=== PATIENT | male | born 1930 | race Caucasian/White ===

== ENCOUNTER 2017-01-14 11:01 | Inpatient (IN) ==
--- NOTE | 2017-01-14 11:26 | Emergency Department Note ---
Disposition Clinical Impression: Paraphimosis Hip fracture, right Qualifiers: Encounter type: initial encounter Fracture type: closed Qualified Code(s): S72.001A - Fracture of unspecified part of neck of right femur, initial encounter for closed fracture Disposition: Admitted As Inpatient Condition: Fair [facility] Provider[facility] - Forms: ED Satisfaction Letter Time of Disposition: 13:53 General Adult HPI - General Chief complaint: ED Fall Stated complaint: hip fx Time Seen by Provider: 01/14/17 11:08 Source: patient, EMS Limitations: no limitations Nursing Notes Reviewed: Yes Vital Signs Reviewed: Yes - History of Present Illness HPI Narrative: 6-year-old male presents the ED from [facility] complaining of right hip pain from a unwitnessed fall out of his wheelchair. Patient has a history of dementia and is a very poor historian. [facility] in his room out of his chair complaining that his whole right side hurt. They took him down to the clinic and had an x-ray and said his right hip was fractured. He was then transferred [facility]. Patient is unable to say if he has pain or when he fell or how he fell. Pain Scale: 2 - Related Data Allergies Allergy/AdvReac Type Severity Reaction Status Date / Time No Known Allergies Allergy Verified 01/14/17 13:00 Constitutional: Denies: fever, chills, weakness, weight change Eyes: Reports: as per HPI Cardiovascular: Denies: chest pain, palpitations, dyspnea on exertion, edema, syncope Respiratory: Denies: cough, dyspnea, wheezes, hemoptysis, stridor Gastrointestinal: Denies: abdominal pain, nausea, vomiting, diarrhea, constipation, hematemesis, melena, hematochezia Genitourinary: Denies: urgency, dysuria, frequency, hematuria Musculoskeletal: Denies: back pain, neck pain, arthralgia, myalgia Integumentary: Denies: rash, abrasion, lesions Neurological: Denies: headache, weakness, numbness, paresthesias, confusion, abnormal gait, vertigo Hematological/Lymphatic: Denies: easy bleeding, easy bruising Past Medical History - Past Medical History Attestation: Yes The following information was validated with the patient. Medical history: Reports: atrial fibrillation, coronary artery disease, dementia , hypertension Psychiatric history: Reports: no psych history - Social History Smoking Status: Unknown if ever smoked Smokeless Tobacco Status: No Alcohol use: Reports: none Drug use: Reports: none Physical Exam - General Limitations: no limitations General appearance: alert, in no apparent distress - Head Head exam: atraumatic, normocephalic, normal inspection - Eye Eye exam: Present: normal appearance, PERRL, EOMI - Chest Chest inspection: Present: normal inspection, symmetric chest wall rise - Respiratory Respiratory exam: Present: normal lung sounds bilaterally - Cardiovascular Cardiovascular exam: Present: regular rate, normal rhythm, normal heart sounds - Abdominal Exam Abdominal exam: Present: soft, Non-Tender. Absent: tenderness, distention, guarding, rebound, rigidity - Extremities Exam Extremities exam: Present: pedal edema - Expanded Lower Extremity Exam Hip/Pelvis exam: Present: tenderness, swelling, dislocation (Right leg shortened and internally rotated), internal rotation, shortening - Neurological Exam Neurological exam: Present: alert. Absent: oriented X3 (History of dementia) - Skin Skin exam: Present: warm, dry, intact, pallor Course Course Narrative: 86 year-old male presents to ED from the [facility] with possible right hip fracture. We will get right hip x-rays's, CBC BMP, PT/INR, urinalysis. - Reevaluation(s) Reevaluation #1: After evaluating the patient. He is still in the same state complaining of no pain but is still very demented. He did respond when I talked to him but he did not say anything. After thinking more about his fall we decided to order a chest x-ray to look for pneumonia or another possible cause of infection. Also ordered a CT head without contrast for possible stroke or head trauma from the fall as it was an unwitnessed fall. When we ordered a urinalysis and was unable to be done due to chronic paraphimosis and the tech was unable to see the urethral meatus to insert a catheter. We will consult urology. Vital Signs Temperature 98.4 F 01/14/17 11:02 Pulse Rate 97 01/14/17 11:02 Respiratory Rate 18 01/14/17 11:02 Blood Pressure 123/86 01/14/17 11:02 O2 Sat by Pulse Oximetry 94 01/14/17 11:02 Temperature 98.4 F 01/14/17 11:02 Pulse Rate 97 01/14/17 11:02 Respiratory Rate 18 01/14/17 11:02 Blood Pressure 123/86 01/14/17 11:02 O2 Sat by Pulse Oximetry 94 01/14/17 11:02 Oxygen Delivery Oxygen Delivery Room Air Medical Decision Making - MDM Narrative Medical decision making narrative: 86-year-old male presents to the ED with right hip pain from a fall and possible fracture. [facility] stated it was a right hip fracture but did not send records. After Ordering labs he has a leukocytosis with a left shift. from an unknown cause. Hip x-ray shows intertrochanteric fracture of the right hip. Due to the fall we are also ordering a chest x-ray and head CT for possible stroke or pneumonia which could have caused the fall. 12:40- upon reevaluation patient is still laying in bed asleep. Urinalysis was unable to be done due to patient having chronic paraphimosis where we are unable to see the urethral meatus. Consulted Dr. Erwin of urology. He stated that as long as he is not retaining he will put a Paul catheter and hand when he is dominant clinic in the evening today after he is on the floor. 1:22 PM- E consultation or so who agrees with the plan of admitting moving the patient. He wants a CT noncontrast of the right hip ordered to look for placement of the hip. He will see the patient up on the floor later today. CT of the head was negative and chest x-ray only shows cardiomegaly. With patient being demented and having a right hip fracture the plan is to admit the patient. The most likely cause of the fall is probably a chronic UTI due to paraphimosis. 1:[address] Avelar was consulted for admission he agrees this is a good admission. I examined this patient and my medical decision-making was reviewed with the MACHINE TOOL OPERATOR/PA/Advanced Practice Nurse/Resident Physician. I agree with the documented findings, disposition and treatment plan as described except to the extent set forth below. Patient seen and evaluated by the ED psychology intern, Chas Long, and myself, I agree with his evaluation and management plan, I supervised the care of the patient's stay. I taken a call from the [facility]. Cipriano is an inpatient at the [facility] due to dementia. Nurse practitioner says his dementia is getting worse. Did have a fall that they thought was mechanical. He had a right intertrochanteric hip fracture. They did not send the x-ray were so we had to repeat that here getting lab work CT of his head and then reassess he will need admission. He says he is not any pain at this times we have held off on pain medications. He does not appear agitated or tachycardic. He does have a history of atrial fibrillation. Waiting on labs and then will speak to orthopedics and hospitalist. Hip X-Ray 01/14/17 11:09 IMPRESSION: Acute nondisplaced traumatic right femoral neck fracture. D/ / Kriss Osei MD / Kriss Osei MD Interpreting Provider: Kriss Osei MD Hip X-Ray 01/14/17 11:09 IMPRESSION: Acute nondisplaced traumatic right femoral neck fracture. D/ / Kriss Osei MD / Kriss Osei MD Interpreting Provider: Kriss Osei MD Head CT 01/14/17 12:12 IMPRESSION: No acute intracranial abnormality. Chronic white matter microangiopathic ischemic changes and age-related cerebral atrophy. D/ / Lizandro Almeida MD / Lizandro Almeida MD Interpreting Provider: Lizandro Almeida MD Chest X-Ray 01/14/17 12:16 IMPRESSION: Cardiomegaly, otherwise, no acute abnormalities D/ / Andrei Thompson MD / Andrei Thompson MD Interpreting Provider: Andrei Thompson MD 1315 hrs.: Were going to talk with orthopedics and hospitalist for admission. - Medical Records Medical records reviewed: Yes I reviewed the patient's medical records. - Lab Data Lab results reviewed: Yes I reviewed the patient's lab results. Result diagrams: 01/14/17 11:23 01/14/17 11:23 Lab Results 01/14/17 01/14/17 01/14/17 Range/Units 11:23 11:23 11:23 WBC 17.9 H (4.3-11.1) K/mcL RBC 3.39 L (4.19-5.50) M/mcL Hgb 9.9 L (12.9-16.9) g/dL Hct 30.2 L (37.5-50.1) % MCV 89.1 (83.0-100.0) fL MCH 29.2 (28.0-33.3) pg MCHC 32.8 (31.6-35.5) g/dL RDW 13.6 (11.5-14.5) % Plt Count 247 (140-400) K/mcL MPV 10.0 (9.4-12.4) fL Immature Gran % 0.7 (0-4) % Seg Neutrophils % 83.9 % Lymphocytes % 8.5 % Monocytes % 6.3 % Eosinophils % 0.4 % Basophils % 0.2 % Neutrophils # 15.0 H (1.6-8.9) K/mcL Lymphocytes # 1.5 (0.6-4.6) K/mcL Monocytes # 1.1 (0.0-1.3) K/mcL Eosinophils # 0.1 (0.0-0.6) K/mcL Basophils # 0.0 (0.0-0.2) K/mcL PT 15.2 H (9.4-12.1) Seconds INR 1.4 Sodium 136 (136-145) mEq/L Potassium 3.9 (3.5-4.5) mEq/L Chloride 100 (98-109) mEq/L Carbon Dioxide 29 (19-29) mEq/L BUN 12 (8-26) mg/dL Creatinine 0.76 (0.72-1.25) mg/dL Est GFR ( Amer) > 60 (> 60) Est GFR (Non-Af Amer) > 60 (> 60) BUN/Creatinine Ratio 16 (6-26) Glucose 181 H (70-99) mg/dL Calculated Osmolality 286 (280-300) Calcium 9.2 (8.6-10.8) mg/dL - EKG Data EKG #1 EKG attestation: Yes I reviewed and interpreted this EKG. EKG results narrative: EKG done and read at 11:10 AM. Atrial fibrillation rate of 103, QRS 89, QTc 403 , normal axis. No acute ST changes. No T-wave abnormalities. Few PVCs present. No signs of WPW or Brugada. No old EKG to compare with. Rate: tachycardia Rhythm: A.Fib [place]/QRS: normal When compared to previous EKG there are: previous EKG unavailable Interpretation: no acute changes
[2017-01-14 11:30] LABS: Basophils % 0.2 %; Eosinophils # 0.1 K/mcL (0.0-0.6); Eosinophils % 0.4 %; Hematocrit 30.2 % (37.5-50.1); Hemoglobin 9.9 g/dL (12.9-16.9); Immature Granulocytes % 0.7 % (0-4); Lymphocytes # 1.5 K/mcL (0.6-4.6); Lymphocytes % 8.5 %; Mean Corpuscular HGB Conc 32.8 g/dL (31.6-35.5); Mean Corpuscular Hemoglobin 29.2 pg (28.0-33.3); Mean Corpuscular Volume 89.1 fL (83.0-100.0); Monocytes # 1.1 K/mcL (0.0-1.3); Monocytes % 6.3 %; Platelet Count 247 K/mcL (140-400); Red Blood Count 3.39 M/mcL (4.19-5.50); Red Cell Distribution Width 13.6 % (11.5-14.5); Segmented Neutrophils % 83.9 %
[2017-01-14 11:35] LABS: INR 1.4; Prothrombin Time 15.2 Seconds (9.4-12.1)
[2017-01-14 11:43] LABS: BUN/Creatinine Ratio 16 (6-26); Blood Urea Nitrogen 12 mg/dL (8-26); Calcium 9.2 mg/dL (8.6-10.8); Carbon Dioxide 29 mEq/L (19-29); Chloride 100 mEq/L (98-109); Glucose 181 mg/dL (70-99); Osmolality,Calculated 286 (280-300); Potassium 3.9 mEq/L (3.5-4.5); Sodium 136 mEq/L (136-145); eGFR For African Americans > 60 (> 60); eGFR For Non-African Americans > 60 (> 60)
[2017-01-14] MEDS ORDERED: Naloxone 0.4 MG/ML INJ IVP PRN (15:37)
[2017-01-14] MEDS ORDERED: Acetaminophen 325 MG TABLET PO PRN (15:37)
[2017-01-14] MEDS ORDERED: *HR* Dextrose 50 % in Water (Syg) 50 ML SYRINGE IVP PRN (15:37)
[2017-01-14] MEDS ORDERED: *HR* Morphine 2 MG/ML SYRINGE IVP PRN (15:37)
[2017-01-14] MEDS ORDERED: D5% in Water 1,000 ML IVC PRN (15:37)
[2017-01-14] MEDS ORDERED: Ondansetron 4 MG/2 ML VIAL IVP PRN (15:37)
[2017-01-14] MEDS ORDERED: Dextrose Gel 15 GM PO PRN ×2 (15:37)
[2017-01-14] MEDS ORDERED: *HR* LORazepam 2 MG/ML VIAL IVP PRN (15:43)
--- NOTE | 2017-01-14 15:50 | Internal Med History&Physical ---
Date of Encounter: 01/14/17 Time of Encounter: 15:47 Assessment and Plan (1) Hip fracture, right Current visit: Yes Status: Acute Fall precautions CT scan shows right closed subcapital femoral neck fracture Orthopedic surgery consulted Luiz's revised score of 1 due to history of CAD, low risk for cardiac complications during surgery, intermediate risk surgery Omeprazole for GI prophylaxis and subcutaneous heparin for DVT prophylaxis. The patient will be admitted as inpatient, expected to stay more than 2 midnights. DNR CC according to records sent from the [place]. Time spent on this admission 40 minutes. High risk for falling Qualifiers: Encounter type: initial encounter Fracture type: closed Qualified Code(s) : S72.001A - Fracture of unspecified part of neck of right femur, initial encounter for closed fracture (2) History of ESBL E. coli infection Current visit: Yes Status: Acute UTI suspected Obtain urine sample with a urology specialist is able to place Paul catheter May start meropenem afterwards as it is unknown whether the patient fell as a result of having an infection Sent urine culture, blood cultures (3) Fall Current visit: Yes Status: Acute Qualifiers: Encounter type: initial encounter Qualified Code(s): W19.XXXA - Unspecified fall, initial encounter (4) Hyperglycemia Current visit: Yes Status: Acute No history of diabetes Order insulin sliding scale Hemoglobin A1c (5) Atrial fibrillation Current visit: Yes Status: Acute Continue diltiazem and aspirin Qualifiers: Atrial fibrillation type: paroxysmal Qualified Code(s): I48.0 - Paroxysmal atrial fibrillation (6) Dementia Current visit: Yes Status: Acute Continue risperidone and Ativan as needed Qualifiers: Dementia type: unspecified type Dementia behavioral disturbance: without behavioral disturbance Qualified Code(s): F03.90 - Unspecified dementia without behavioral disturbance (7) Paraphimosis Current visit: Yes Status: Acute Urology consulted Internal Medicine - H&P: HPI Chief complaint: Fall and hip pain Admitted From: Emergency Dept History of present illness: Mr. 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 Apparently the patient came with a diagnosis of right hip fracture. A CT scan of the hip showed a right closed subcapital femoral neck fracture nondisplaced. Dr. Winn was contacted by the ER. The patient is not able to provide any history and apparently he was found out of his chair on the floor complaining of right hip pain. She is very somnolent/lethargic white blood cell count is 17.9 hemoglobin 9.4 glucose was 181 although there is no history of diabetes in his chart CT scan of the head does not show any intracranial hemorrhage, chest x-ray shows cardiomegaly. A urine sample was not able to be obtained, urology was consulted in the ER physician spoke with Dr. Erwin who will see the patient later on the floor. The patient is resting comfortably at the moment Past Med Surg Social Fam HX - Past Medical History Medical history: atrial fibrillation (Not on anticoagulation other than aspirin) , coronary artery disease, dementia, hyperlipidemia, hypertension, other (BPH, diverticulosis, dementia, hyperglycemia no history of prior diabetes, chronic paraphimosis, ESBL Escherichia coli diagnosed in September 2016 sensitive to meropenem nitrofurantoin tetracycline gentamicin tobramycin, glaucoma, anxiety, depression) Psychiatric history: no psych history - Past Surgical History Surgical History: no surgical history - Social History Smoking Status: Unknown if ever smoked Smokeless Tobacco Status: No Alcohol use: none Drug use: none - Additional Family History Additional family history: Unobtainable Internal Medicine - H&P: Meds Allergies No Known Allergies Allergy (Verified 01/14/17 13:00) All Systems PM: A 10-system review of systems was performed and is negative for pertinent findings except as documented above in the HPI. Review of systems: Review of systems Not able to be obtained due to patient's status and dementia - Constitutional Vitals: Temp Pulse Resp BP Pulse Ox 98.4 F 97 18 123/86 94 01/14/17 11:02 01/14/17 11:02 01/14/17 11:02 01/14/17 11:02 01/14/17 11:02 General appearance: Present: A&O X 1 - Head Head exam: Present: atraumatic, normocephalic Additional comments: Legally blind - Eye Eye exam: Present: PERRL, conjuntiva pink, sclera anicteric Pupils: Present: PERRL - Neck Neck exam general surgery: Present: supple, trachea midline. Absent: lymphadenopathy - Respiratory Respiratory exam: Present: decreased breath sounds, CTAB. Absent: accessory muscle use, rales, rhonchi, wheezes - Cardiovascular Cardiovascular exam: Present: RRR, +S1, +S2. Absent: diastolic murmur, gallop, rubs, systolic murmur - GI/Abdominal GI/Abdominal exam: Present: normal bowel sounds, soft, no peritoneal signs. Absent: distended, tenderness - Extremities Exam Extremities exam: Present: warm, radial pulses palpable and symetrical. Absent : calf tenderness, cyanotic, pedal edema - Neurological Exam Neurological exam: Present: CN II-XII intact, no focal deficits. Absent: oriented X3, pronater drift, facial droop, speech deficit Additional comments: Generalized weakness, right hip swelling, no ecchymosis or hematomas - Skin Skin exam: Present: dry, intact Internal Med - H&P Results - Labs CBC & Chem 7: 01/14/17 11:23 01/14/17 11:23 Labs: Short CBC 01/14/17 Range/Units 11:23 WBC 17.9 H (4.3-11.1) K/mcL Hgb 9.9 L (12.9-16.9) g/dL Hct 30.2 L (37.5-50.1) % Plt Count 247 (140-400) K/mcL Neutrophils # 15.0 H (1.6-8.9) K/mcL BMP 01/14/17 11:23 Sodium 136 Potassium 3.9 Chloride 100 Carbon Dioxide 29 BUN 12 Creatinine 0.76 Glucose 181 H Calcium 9.2 - Impressions ITS Impressions Hip X-Ray 01/14/17 11:09 IMPRESSION: Acute nondisplaced traumatic right femoral neck fracture. D/ / Kriss Osei MD / Kriss Osei MD Interpreting Provider: Kriss Osei MD Head CT 01/14/17 12:12 IMPRESSION: No acute intracranial abnormality. Chronic white matter microangiopathic ischemic changes and age-related cerebral atrophy. D/ / Lizandro Almeida MD / Lizandro Almeida MD Interpreting Provider: Lizandro Almeida MD Chest X-Ray 01/14/17 12:16 IMPRESSION: Cardiomegaly, otherwise, no acute abnormalities D/ / Andrei Thompson MD / Andrei Thompson MD Interpreting Provider: Andrei Thompson MD Hip CT 01/14/17 13:19 IMPRESSION: Acute traumatic impacted closed subcapital right femoral neck fracture. No additional acute abnormalities are seen. Degenerative changes to both hips, both SI joints and to the visualized lower lumbar spine. Mildly enlarged prostate. Colonic diverticulosis without findings for diverticulitis. D/ / 01/14/2017 14:37:19 Tobin Vasquez MD / [facility] Interpreting Provider: Tobin Vasquez MD
--- NOTE | 2017-01-14 18:09 | Orthopedic Consult Note ---
Date of Encounter: 01/14/17 Time of Encounter: 18:06 Assessment and Plan (1) Hip fracture, right Current Visit: Yes Status: Acute At this point the patient has a right impacted femoral neck fracture, likely acute given the clinical scenario. The patient is unable to verbalize his complaints and there is no family at the bedside. The orthopedic recommendation is for in situ percutaneous screw fixation of the right hip in order to stabilize femoral neck and reduce the risk of displacement. Risks of the surgery including injury to veins, nerves, arteries, tendons, ligaments, and bone as well as the risk of malunion, nonunion, avascular necrosis, screw failure, and the need for revision to prosthetic replacement. The patient will also be a risk for requiring a blood transfusion, as well as the risks of general anesthesia. I will attempt to contact the power of [place] attorney to discuss this further so that consent can be obtained. In the meantime the patient will require medical clearance prior to surgery. Nothing to eat after midnight, and bed rest in the meantime. Qualifiers: Encounter type: initial encounter Fracture type: closed Qualified Code(s) : S72.001A - Fracture of unspecified part of neck of right femur, initial encounter for closed fracture History of Present Illness HPI: Mr. Gonzalez is a 86 year old male with multiple medical comorbidities including atrial fibrillation on aspirin and coronary artery disease who lives in a [place]. He was brought to the emergency department after being found down from his chair at the [facility]itentiary and apparently complaining of right hip pain. After being seen in the emergency department, imaging studies did show a right impacted femoral neck fracture. I was counseled to to assist in evaluation and management of the patient, and the patient was admitted to the hospitalist. There is no family with the patient and the patient has significant dementia and is unable to provide any history. Therefore the history was obtained from the medical record. The patient was unable to provide or verbalize any complaints, though he does not appear uncomfortable. Because of an elevated white blood cell count and unknown cause of the fall, the hospitalist did give the patient a dose of meropenem for a possible infection which may have been the cause. A Paul was placed in the emergency department, however the patient apparently pulled this out. A urology consult has been placed as a result of this and prior penile surgery. Past Med Surg Social Fam HX - Past Medical History Medical history: atrial fibrillation (Not on anticoagulation other than aspirin) , coronary artery disease, dementia, hyperlipidemia, hypertension, other (BPH, diverticulosis, dementia, hyperglycemia no history of prior diabetes, chronic paraphimosis, ESBL Escherichia coli diagnosed in September 2016 sensitive to meropenem nitrofurantoin tetracycline gentamicin tobramycin, glaucoma, anxiety, depression) Psychiatric history: no psych history - Past Surgical History Surgical History: no surgical history, non-contributory - Social History Smoking Status: Unknown if ever smoked Smokeless Tobacco Status: No Alcohol use: none Drug use: none Medications and Allergies Acetaminophen [Tylenol] 650 mg PO TID PRN 01/14/17 [History] Ammonium Lactate 1 appl TP MOTH 01/14/17 [History] Aspirin Enteric Coated [Aspirin EC] 81 mg PO DAILY 01/14/17 [History] Atorvastatin [Lipitor] 10 mg PO HS 01/14/17 [History] Diltiazem HCl [Diltiazem 24Hr Cd] 240 mg PO DAILY 01/14/17 [History] Furosemide [Lasix] 20 mg PO DAILY 01/14/17 [History] Ipratropium/Albuterol Neb [Duoneb] 3 ml IH Q6HR PRN 01/14/17 [History] Isosorbide MONOnitrate (24 HR) [Imdur] 15 mg PO DAILY 01/14/17 [History] LORazepam [Ativan] 0.5 mg PO BID PRN 01/14/17 [History] Magnesium Hydroxide [Milk of Magnesia] 2,400 mg PO DAILY PRN 01/14/17 [History] Melatonin 3 mg PO HS 01/14/17 [History] Menthol/Zinc Oxide [Calmoseptine Ointment Packet] 3.5 gm TP BID 01/14/17 [ History] Methyl Salicylate/Menthol [Muscle Rub Cream] 1 appl TP TID 01/14/17 [History] Nitroglycerin [Nitrostat] 0.4 mg SL Q5M PRN 01/14/17 [History] RisperiDONE [Risperdal] 0.5 mg PO BID 01/14/17 [History] RisperiDONE [Risperdal] 0.5 mg PO Q8H PRN 01/14/17 [History] Sennosides/Docusate Sodium [Senna Plus] 2 each PO BID 01/14/17 [History] Sodium Chloride 1 drop LEFT EYE QID 01/14/17 [History] Sodium Chloride 5% OPTH Oint [Devi-128] 1 appl LEFT EYE HS 01/14/17 [History] Tamsulosin [Flomax] 0.4 mg PO DAILY 01/14/17 [History] Tramadol HCl [Ultram] 25 mg PO BID 01/14/17 [History] Tramadol HCl [Ultram] 50 mg PO BID PRN 01/14/17 [History] traZODone [TraZODone] 25 mg PO HS 01/14/17 [History] Allergies No Known Allergies Allergy (Verified 01/14/17 13:00) ROS unobtainable: due to mental status Physical Exam - Constitutional Vitals: Temp Pulse Resp BP Pulse Ox 98.4 F 105 18 111/60 95 01/14/17 11:02 01/14/17 16:15 01/14/17 17:31 01/14/17 17:31 01/14/17 16:15 Constitutional -Vitals reviewed -The patient is well developed and well nourished. -Mood is pleasant. -The patient does smell of urine Psychiatric -The patient is alert only to self. Respiratory: -Respiratory effort normal Abdomen: -Soft abdomen -Non tender -Non distended: Left upper extremity: -No deformities. The overlying skin is intact. No obvious signs of acute trauma. -No tenderness to palpation throughout. -No significant pain with passive motion of the shoulder, elbow, wrist, and fingers within the limits of the bed. -Unable to provide a meaningful neurologic exam given his mental status -Radial pulse is present; Fingers have good capillary refill. Right upper extremity: -No deformities. The overlying skin is intact. No obvious signs of acute trauma. -No tenderness to palpation throughout. -No significant pain with passive motion of the shoulder, elbow, wrist, and fingers within the limits of the bed. -Unable to provide a meaningful neurologic exam given his mental status -Radial pulse is present; Fingers have good capillary refill. Left lower extremity: -No deformities. The overlying skin is intact. No obvious signs of acute trauma. -No tenderness to palpation throughout. -No pain with passive motion of the hip, knee, ankle, and toes within the limits of the bed. -No pain with axial loading of the thigh. -Able to dorsiflex and plantarflex the ankle and toes. -Unable to provide a meaningful neurologic exam given his mental status -Toes have good capillary refill. Right lower extremity: -Minimal shortening of the right lower extremity bilaterally a few millimeters. The overlying skin is intact. No obvious signs of acute trauma. -No tenderness to palpation throughout. -I did gently axial load the right hip as well as logroll the right hip which did not cause any significant grimace or pain. -Able to dorsiflex and plantarflex the ankle and toes on command. -Unable to provide a meaningful neurologic exam given his mental status -Toes have good capillary refill. Diagnostic Imaging: I did personally review and interpret x-rays of the right hip as well as a CT scan which does show an impacted femoral neck fracture. The acuity is not entirely clear, though the suspicion is that this is an acute injury. Results - Labs Result Diagrams: 01/14/17 11:23 01/14/17 11:23 Labs: Abnormal lab results WBC 17.9 K/mcL (4.3-11.1) H 01/14/17 11:23 RBC 3.39 M/mcL (4.19-5.50) L 01/14/17 11:23 Hgb 9.9 g/dL (12.9-16.9) L 01/14/17 11:23 Hct 30.2 % (37.5-50.1) L 01/14/17 11:23 Neutrophils # 15.0 K/mcL (1.6-8.9) H 01/14/17 11:23 PT 15.2 Seconds (9.4-12.1) H 01/14/17 11:23 Glucose 181 mg/dL (70-99) H 01/14/17 11:23 All other labs normal. Consult Discharge Plan - Plan [facility]errals: [facility] [Primary Care Provider] -
[2017-01-14] MEDS: *HR* Heparin 5,000 UNIT/ML VIAL SQ SCH (18:39)
[2017-01-14] MEDS: 0.9 % Sodium Chloride 1,000 ML IVC SCH (18:40)
[2017-01-14] MEDS: Insulin LISPRO 300 UNITS/3 ML VIAL SQ SCH (18:40)
[2017-01-14 18:54] LABS: Bilirubin,Urine Negative (Negative); Blood,Urine Negative (Negative); Clarity,Urine Cloudy (Clear); Color,Urine Yellow (Yellow); Glucose,Urine (UA) Normal (Normal); Ketones,Urine Negative (Negative); Leukocyte Esterase,Urine Small (Negative); Nitrite,Urine Positive (Negative); PH,Urine 7.5 pH Units (5.0-8.0); Protein,Urine Negative (Neg-Trace); Urobilinogen,Urine Normal (Normal)
[2017-01-14 18:57] LABS: Bacteria,Urine Many per hpf (None-Few); Hyaline Casts,Urine None Seen per lpf (None-Few); RBC,Urine 0-3 per hpf (0-3); Squamous Epithelial Cell,Urine Few per lpf (None-Few)
[2017-01-14] MEDS: risperiDONE 0.25 MG TABLET PO SCH (21:03)
--- NOTE | 2017-01-14 21:05 | Urology - Consult Note ---
Date of Encounter: 01/14/17 Time of Encounter: 21:03 - Assessment and Plan (1) Phimosis Current Visit: Yes Status: Acute Assessment and plan: catheter was placed by MD (see procedure note). ok to keep cath as long as primary service requires then ok to remove. pt may need circumcision in future (can be done in the office). will evaluate if he continues to have UTIs which is likely multifactoreal. Urology CN:HPI Reason for consult Urology: Difficult Paul History of present illness: pt presents to ER with hip fracture. unable to place cath bc of tight phimosis. pt with dementia. plan for pinning tomorrow. Past Med Surg Social Fam HX - Past Medical History Medical history: atrial fibrillation (Not on anticoagulation other than aspirin) , coronary artery disease, dementia, hyperlipidemia, hypertension, other (BPH, diverticulosis, dementia, hyperglycemia no history of prior diabetes, chronic paraphimosis, ESBL Escherichia coli diagnosed in September 2016 sensitive to meropenem nitrofurantoin tetracycline gentamicin tobramycin, glaucoma, anxiety, depression) Psychiatric history: no psych history - Past Surgical History Surgical History: no surgical history, non-contributory - Social History Smoking Status: Unknown if ever smoked Smokeless Tobacco Status: No Alcohol use: none Drug use: none Medications and Allergies Acetaminophen [Tylenol] 650 mg PO TID PRN 01/14/17 [History] Ammonium Lactate 1 appl TP MOTH 01/14/17 [History] Aspirin Enteric Coated [Aspirin EC] 81 mg PO DAILY 01/14/17 [History] Atorvastatin [Lipitor] 10 mg PO HS 01/14/17 [History] Diltiazem HCl [Diltiazem 24Hr Cd] 240 mg PO DAILY 01/14/17 [History] Furosemide [Lasix] 20 mg PO DAILY 01/14/17 [History] Ipratropium/Albuterol Neb [Duoneb] 3 ml IH Q6HR PRN 01/14/17 [History] Isosorbide MONOnitrate (24 HR) [Imdur] 15 mg PO DAILY 01/14/17 [History] LORazepam [Ativan] 0.5 mg PO BID PRN 01/14/17 [History] Magnesium Hydroxide [Milk of Magnesia] 2,400 mg PO DAILY PRN 01/14/17 [History] Melatonin 3 mg PO HS 01/14/17 [History] Menthol/Zinc Oxide [Calmoseptine Ointment Packet] 3.5 gm TP BID 01/14/17 [ History] Methyl Salicylate/Menthol [Muscle Rub Cream] 1 appl TP TID 01/14/17 [History] Nitroglycerin [Nitrostat] 0.4 mg SL Q5M PRN 01/14/17 [History] RisperiDONE [Risperdal] 0.5 mg PO BID 01/14/17 [History] RisperiDONE [Risperdal] 0.5 mg PO Q8H PRN 01/14/17 [History] Sennosides/Docusate Sodium [Senna Plus] 2 each PO BID 01/14/17 [History] Sodium Chloride 1 drop LEFT EYE QID 01/14/17 [History] Sodium Chloride 5% OPTH Oint [Devi-128] 1 appl LEFT EYE HS 01/14/17 [History] Tamsulosin [Flomax] 0.4 mg PO DAILY 01/14/17 [History] Tramadol HCl [Ultram] 25 mg PO BID 01/14/17 [History] Tramadol HCl [Ultram] 50 mg PO BID PRN 01/14/17 [History] traZODone [TraZODone] 25 mg PO HS 01/14/17 [History] Allergies No Known Allergies Allergy (Verified 01/14/17 13:00) Review of Systems ROS unobtainable: due to mental status Exam Initial Vital Signs Temp Pulse Resp BP Pulse Ox 98.4 F 97 18 123/86 94 01/14/17 11:02 01/14/17 11:02 01/14/17 11:02 01/14/17 11:02 01/14/17 11:02 - General physical appearance Present: no distress, chronically ill - Eyes Present: PERRL - ENT Present: normal nares - Neck Present: no masses - Respiratory Present: normal respiratory effort - Cardiovascular Cardiovascular exam IM: RRR - Abdomen Abdomen: Present: soft - Genitourinary Penis: Present: phimosis, other (unalbe to visualized glans. ) Testicles: Present: normal size - Integumentary Present: no rash - Neurologic Present: disoriented, confused Urology Results - Labs 01/14/17 11:23 01/14/17 11:23 Abnormal lab results WBC 17.9 K/mcL (4.3-11.1) H 01/14/17 11:23 RBC 3.39 M/mcL (4.19-5.50) L 01/14/17 11:23 Hgb 9.9 g/dL (12.9-16.9) L 01/14/17 11:23 Hct 30.2 % (37.5-50.1) L 01/14/17 11:23 Neutrophils # 15.0 K/mcL (1.6-8.9) H 01/14/17 11:23 PT 15.2 Seconds (9.4-12.1) H 01/14/17 11:23 Glucose 181 mg/dL (70-99) H 01/14/17 11:23 Urine Clarity Cloudy (Clear) A 01/14/17 18:40 Urine Nitrite Positive (Negative) A 01/14/17 18:40 Ur Leukocyte Esterase Small (Negative) H 01/14/17 18:40 Urine Microscopic WBC 5-15 per hpf (0-3) H 01/14/17 18:40 Urine Bacteria Many per hpf (None-Few) H 01/14/17 18:40 Ur Culture Indicated? YES (NO) A 01/14/17 18:40 All other labs normal. Consult Discharge Plan - Plan [facility]errals: [facility] [Primary Care Provider] -
[2017-01-14 22:16] LABS: Bilirubin,Urine Negative (Negative); Blood,Urine Small (Negative); Clarity,Urine Cloudy (Clear); Color,Urine Yellow (Yellow); Glucose,Urine (UA) Normal (Normal); Ketones,Urine Negative (Negative); Leukocyte Esterase,Urine Small (Negative); Nitrite,Urine Negative (Negative); PH,Urine 7.5 pH Units (5.0-8.0); Protein,Urine Negative (Neg-Trace); Urobilinogen,Urine Normal (Normal)
[2017-01-14 22:23] LABS: Bacteria,Urine None Seen per hpf (None-Few); Hyaline Casts,Urine None Seen per lpf (None-Few); Squamous Epithelial Cell,Urine None Seen per lpf (None-Few); WBC,Urine 15-30 per hpf (0-3)
[2017-01-14] MEDS: Meropenem 1,000 MG in 0.9 % Sodium Chloride Mini Bag 100 ML IVPB SCH (22:29)
[2017-01-15] MEDS: *HR* Heparin 5,000 UNIT/ML VIAL SQ SCH ×2 (00:05→07:50)
[2017-01-15] MEDS: Meropenem 1,000 MG in 0.9 % Sodium Chloride Mini Bag 100 ML IVPB SCH (06:05)
--- NOTE | 2017-01-15 07:15 | Orthopedics Progress Note ---
Date of Encounter: 01/15/17 Time of Encounter: 07:12 - Assessment and Plan (1) Hip fracture, right Current Visit: Yes Status: Acute At this point the patient has a right impacted femoral neck fracture, likely acute given the clinical scenario. The patient is unable to verbalize his complaints and there is no family at the bedside. The orthopedic recommendation is for in situ percutaneous screw fixation of the right hip in order to stabilize femoral neck and reduce the risk of displacement. Risks of the surgery including injury to veins, nerves, arteries, tendons, ligaments, and bone as well as the risk of malunion, nonunion, avascular necrosis, screw failure, and the need for revision to prosthetic replacement. The patient will also be a risk for requiring a blood transfusion, as well as the risks of general anesthesia. I will attempt to contact the power of deputy commonwealth's attorney to discuss this further so that consent can be obtained. In the meantime the patient will require medical clearance prior to surgery. Nothing to eat after midnight, and bed rest in the meantime. Qualifiers: Encounter type: initial encounter Fracture type: closed Qualified Code(s) : S72.001A - Fracture of unspecified part of neck of right femur, initial encounter for closed fracture Subjective Interval history: S: Sudheer is resting in bed comfortably without complaints. A catheter was placed yesterday by urology. O: Afebrile, VSS Patient is sleepy but arousable; Right lower extremity with minimal shortening, a few mm. Grossly flexes and extends the ankle and toes of the right lower extremity on command. The foot is warm and well-perfused A: Right impacted subcapital femoral neck fracture P: I did get touch with the power of deputy commonwealth's attorney, Yessenia Danna, who is the patient's . I did discuss the diagnosis in great detail with her as well as the treatment options. I recommendation was for in situ percutaneous screw fixation in order to stabilize the right hip to reduce the risk of displacement. The risks discussed included but were not limited to stiffness, bleeding, infection, blood clots, damage to neurovascular structures, tendons, ligaments, and bone. Also discussed was the risk of continued symptoms and possible need for further procedures. I did discuss the anesthesia risks including stroke, heart attack, and . I also discussed the risks of fracture displacement and the need for prosthetic replacement of the right hip as well as the risk of avascular necrosis, malunion, or nonunion. I did explain this to Yessenia in simple terms and she wished to proceed and consent was obtained over the phone. We will plan on surgery later today. Objective Vital signs: Vital Signs Temp Pulse Resp BP Pulse Ox 01/15/17 03:58 98.5 F 108 17 126/75 93 01/14/17 23:43 98 F 115 17 134/63 95 01/14/17 19:35 99.1 F 93 17 132/80 96 01/14/17 17:31 18 111/60 Intake and Output 01/14/17 01/14/17 01/15/17 15:59 23:59 07:59 Intake Total 200 / 200 Output Total 925 / 925 750 / 750 Balance -925 / -925 -550 / -550 Intake: IV Fluids 200 / 200 Merrem 1,000 MG In 0.9 % 200 / 200 Sodium Chloride (Mini-Bag +) 100 ML @ 200 mls/hr IVPB Q12HR NAT Rx#: [id number] Output: Catheter 925 / 925 750 / 750 Other: Weight 84.7 kg Blood Glucose* 122 Patient Weight 01/15/17 23:59 Weight 84.7 kg - Labs CBC & BMP: 01/14/17 11:23 01/14/17 11:23 Labs: Abnormal lab results WBC 17.9 K/mcL (4.3-11.1) H 01/14/17 11:23 RBC 3.39 M/mcL (4.19-5.50) L 01/14/17 11:23 Hgb 9.9 g/dL (12.9-16.9) L 01/14/17 11:23 Hct 30.2 % (37.5-50.1) L 01/14/17 11:23 Neutrophils # 15.0 K/mcL (1.6-8.9) H 01/14/17 11:23 PT 15.2 Seconds (9.4-12.1) H 01/14/17 11:23 Glucose 181 mg/dL (70-99) H 01/14/17 11:23 POC Glucose 122 (58-89) H 01/14/17 21:25 Urine Clarity Cloudy (Clear) A 01/14/17 21:09 Urine Blood Small (Negative) H 01/14/17 21:09 Ur Leukocyte Esterase Small (Negative) H 01/14/17 21:09 Urine Microscopic RBC 3-5 per hpf (0-3) H 01/14/17 21:09 Urine Microscopic WBC 15-30 per hpf (0-3) H 01/14/17 21:09 Ur Culture Indicated? YES (NO) A 01/14/17 21:09 Consult Discharge Plan - Plan [facility]errals: [facility] [Primary Care Provider] -
[2017-01-15] MEDS: Isosorbide MONOnitrate (24 HR) 30 MG TAB.ER.24H PO SCH (07:50)
[2017-01-15] MEDS: Insulin LISPRO 300 UNITS/3 ML VIAL SQ SCH ×3 (07:50→17:03)
[2017-01-15] MEDS: risperiDONE 0.25 MG TABLET PO SCH ×2 (08:06→22:02)
[2017-01-15] MEDS: Diltiazem CD (24hr) 240 MG CAPSULE PO SCH (08:06)
[2017-01-15 08:55] LABS: BUN/Creatinine Ratio 12 (6-26); Blood Urea Nitrogen 7 mg/dL (8-26); Calcium 8.6 mg/dL (8.6-10.8); Carbon Dioxide 25 mEq/L (19-29); Chloride 104 mEq/L (98-109); Glucose 131 mg/dL (70-99); Hematocrit 33.1 % (37.5-50.1); Hemoglobin 10.8 g/dL (12.9-16.9); Mean Corpuscular HGB Conc 32.6 g/dL (31.6-35.5); Mean Corpuscular Hemoglobin 28.6 pg (28.0-33.3); Mean Corpuscular Volume 87.6 fL (83.0-100.0); Mean Platelet Volume 11.4 fL (9.4-12.4); Osmolality,Calculated 286 (280-300); Platelet Count 220 K/mcL (140-400); Potassium 3.5 mEq/L (3.5-4.5); Red Blood Count 3.78 M/mcL (4.19-5.50); Red Cell Distribution Width 13.4 % (11.5-14.5); Sodium 138 mEq/L (136-145); eGFR For African Americans > 60 (> 60); eGFR For Non-African Americans > 60 (> 60)
[2017-01-15] MEDS ORDERED: Aspirin 81 MG TAB.CHEW PO SCH (09:00)
--- NOTE | 2017-01-15 11:11 | Internal Med Progress Note ---
Date of Encounter: 01/15/17 Time of Encounter: 11:08 - Assessment and plan (1) Hip fracture, right Current Visit: Yes Status: Acute Assessment and plan: Fall precautions CT scan shows right closed subcapital femoral neck fracture Orthopedic surgery consulted, scheduled to have surgery later today, will require in situ percutaneous screw fixation of the right hip Luiz's revised score of 1 due to history of CAD, low risk for cardiac complications during surgery, intermediate risk surgery Omeprazole for GI prophylaxis and subcutaneous heparin for DVT prophylaxis. DNR CC according to records sent from the [place] Qualifiers: Encounter type: initial encounter Fracture type: closed Qualified Code(s) : S72.001A - Fracture of unspecified part of neck of right femur, initial encounter for closed fracture (2) History of ESBL E. coli infection Current Visit: Yes Status: Acute Assessment and plan: Sepsis secondary to UTI with history of Escherichia coli ESBL Keep Paul catheter Continue meropenem day 2 blood cultures pending (3) Fall Current Visit: Yes Status: Acute Qualifiers: Encounter type: initial encounter Qualified Code(s): W19.XXXA - Unspecified fall, initial encounter (4) Hyperglycemia Current Visit: Yes Status: Acute Assessment and plan: No history of diabetes Continue insulin sliding scale (5) Atrial fibrillation Current Visit: Yes Status: Acute Assessment and plan: Continue diltiazem and aspirin Qualifiers: Atrial fibrillation type: paroxysmal Qualified Code(s): I48.0 - Paroxysmal atrial fibrillation (6) Dementia Current Visit: Yes Status: Acute Assessment and plan: Continue risperidone and Ativan as needed Qualifiers: Dementia type: unspecified type Dementia behavioral disturbance: without behavioral disturbance Qualified Code(s): F03.90 - Unspecified dementia without behavioral disturbance (7) Paraphimosis Current Visit: Yes Status: Acute Assessment and plan: urology consulted Paul catheter placed - Subjective Interval history: Very somnolent, oriented only in person, unable to complete review of systems the patient's confusion / dementia - Constitutional Vitals: Temp Pulse Resp BP Pulse Ox 98.6 F 110 16 132/72 96 01/15/17 07:15 01/15/17 07:15 01/15/17 07:15 01/15/17 07:15 01/15/17 07:15 General appearance: Present: A&O X 1 Exam: Head Head exam: Present: atraumatic, normocephalic Additional comments: Legally blind - Eye Eye exam: Present: PERRL, conjuntiva pink, sclera anicteric Pupils: Present: PERRL - Neck Neck exam general surgery: Present: supple, trachea midline. Absent: lymphadenopathy - Respiratory Respiratory exam: Present: decreased breath sounds, CTAB. Absent: accessory muscle use, rales, rhonchi, wheezes - Cardiovascular Cardiovascular exam: Present: RRR, +S1, +S2. Absent: diastolic murmur, gallop, rubs, systolic murmur - GI/Abdominal GI/Abdominal exam: Present: normal bowel sounds, soft, no peritoneal signs. Absent: distended, tenderness - Extremities Exam Extremities exam: Present: warm, radial pulses palpable and symetrical. Absent : calf tenderness, cyanotic, pedal edema - Neurological Exam Neurological exam: Present: CN II-XII intact, no focal deficits. Absent: oriented X3, pronater drift, facial droop, speech deficit Additional comments: Generalized weakness, right hip swelling, no ecchymosis or hematomas - Skin Skin exam: Present: dry, intact Internal Medicine: Result - Labs CBC & Chem 7: 01/15/17 08:20 01/15/17 08:20 Labs: Short CBC 01/15/17 Range/Units 08:20 WBC 13.7 H (4.3-11.1) K/mcL Hgb 10.8 L (12.9-16.9) g/dL Hct 33.1 L (37.5-50.1) % Plt Count 220 (140-400) K/mcL BMP 01/15/17 08:20 Sodium 138 Potassium 3.5 Chloride 104 Carbon Dioxide 25 BUN 7 L Creatinine 0.59 L Glucose 131 H Calcium 8.6 Urine 01/14/17 01/14/17 Range/Units 18:40 21:09 Urine Color Yellow Yellow (Yellow) Urine Clarity Cloudy A Cloudy A (Clear) Urine pH 7.5 7.5 (5.0-8.0) pH Units Ur Specific [place] 1.010 1.010 (1.010-1.025) Urine Protein Negative Negative (Neg-Trace) mg/dL Urine Glucose (UA) Normal Normal (Normal) mg/dL - ABG Interpretation ABG results: PT/INR, D-dimer PT 15.2 Seconds (9.4-12.1) H 01/14/17 11:23 Consult Discharge Plan - Plan [facility]errals: [facility] [Primary Care Provider] -
[2017-01-15] MEDS: 0.9 % Sodium Chloride 1,000 ML IVC SCH (11:32)
[2017-01-15] MEDS ORDERED: Lidocaine -MPF 4% 5 ML AMPUL ONE (13:15)
[2017-01-15] MEDS ORDERED: *HR* Propofol 200 MG/20 ML VIAL IVP ONE (13:15)
[2017-01-15] MEDS ORDERED: *HR* Succinylcholine 200 MG/10 ML VIAL IVP ONE (13:15)
[2017-01-15] MEDS ORDERED: *HR* FentaNYL (PF) 100 MCG/2 ML VIAL ONE (13:15)
[2017-01-15] MEDS ORDERED: Dexamethasone 4 MG/ML VIAL ONE (13:15)
[2017-01-15] MEDS ORDERED: Ondansetron 4 MG/2 ML VIAL ONE (13:15)
[2017-01-15] MEDS ORDERED: *HR* Midazolam HCl 2 MG/2 ML VIAL ONE (13:15)
[2017-01-15] MEDS ORDERED: Lidocaine -MPF 2% 2 ML VIAL ONE ×2 (13:15)
--- NOTE | 2017-01-15 13:40 | Anesthesia Evaluation PreOp ---
Date of Encounter: 01/15/17 Time of Encounter: 13:54 - Past History Planned Operation: Right Hip Percutaneous Pinning Cardiac History: CHF, HTN, Hyperlipidemia, Arrhythmia (paroxysmal A-Fib), Other (CAD) Pulmonary History: Former smoker, COPD BUSINESS DEVELOPMENT OFFICER History: Other (dementia) Other Medical History: Diabetes Type II, Other (H/O jimenez in 1977) Anesthesia History: No Prior Anesthetic Complications, Past Anesthesia Alcohol Use: none Drug use: none Medications and Allergies Acetaminophen [Tylenol] 650 mg PO TID PRN 01/14/17 [History] Ammonium Lactate 1 appl TP MOTH 01/14/17 [History] Aspirin Enteric Coated [Aspirin EC] 81 mg PO DAILY 01/14/17 [History] Atorvastatin [Lipitor] 10 mg PO HS 01/14/17 [History] Diltiazem HCl [Diltiazem 24Hr Cd] 240 mg PO DAILY 01/14/17 [History] Furosemide [Lasix] 20 mg PO DAILY 01/14/17 [History] Ipratropium/Albuterol Neb [Duoneb] 3 ml IH Q6HR PRN 01/14/17 [History] Isosorbide MONOnitrate (24 HR) [Imdur] 15 mg PO DAILY 01/14/17 [History] LORazepam [Ativan] 0.5 mg PO BID PRN 01/14/17 [History] Magnesium Hydroxide [Milk of Magnesia] 2,400 mg PO DAILY PRN 01/14/17 [History] Melatonin 3 mg PO HS 01/14/17 [History] Menthol/Zinc Oxide [Calmoseptine Ointment Packet] 3.5 gm TP BID 01/14/17 [ History] Methyl Salicylate/Menthol [Muscle Rub Cream] 1 appl TP TID 01/14/17 [History] Nitroglycerin [Nitrostat] 0.4 mg SL Q5M PRN 01/14/17 [History] RisperiDONE [Risperdal] 0.5 mg PO BID 01/14/17 [History] RisperiDONE [Risperdal] 0.5 mg PO Q8H PRN 01/14/17 [History] Sennosides/Docusate Sodium [Senna Plus] 2 each PO BID 01/14/17 [History] Sodium Chloride 1 drop LEFT EYE QID 01/14/17 [History] Sodium Chloride 5% OPTH Oint [Devi-128] 1 appl LEFT EYE HS 01/14/17 [History] Tamsulosin [Flomax] 0.4 mg PO DAILY 01/14/17 [History] Tramadol HCl [Ultram] 25 mg PO BID 01/14/17 [History] Tramadol HCl [Ultram] 50 mg PO BID PRN 01/14/17 [History] traZODone [TraZODone] 25 mg PO HS 01/14/17 [History] Allergies No Known Allergies Allergy (Verified 01/14/17 13:00) - Meds/Allergy Pre-op Review Medications Reviewed: Yes Allergies Reviewed: Yes Beta Blockers on Current Med List: No Anesthesia Results - Labs 01/15/17 08:20 01/15/17 08:20 - Imaging EKG: report reviewed (01/14/2017 A-Fib with RVR, PVC's. possible RV conduction delay) Anesthesia Exam Vital Signs/O2 Sat/Glucose, Most Recent Temp Pulse Resp BP Pulse Ox 99.4 F 103 18 143/76 95 01/15/17 11:55 01/15/17 11:55 01/15/17 11:55 01/15/17 11:55 01/15/17 11:55 Blood Glucose* 154 Height: 5'6''/1.68 m Weight: 186 lbs/84.7 kg NPO (# of Hours): 8 Pain Scale Used: Unable to assess - HEENT Pupil (Motor): Other (legally blind, right artificial eye, glaucoma) Mallampati: II Teeth: Edentulous Oral Opening: Greater than 3 - BUSINESS DEVELOPMENT OFFICER LOC: Confused - Cardiac Rhythm: Irregular Murmur: None - Pulmonary Breath Sounds: bilateral Clear Respiratory Effort: Symmetrical Anesthesia Assess/Plan ASA Score: 4 Modified Franklin Scale for Level of Consciousness: Anixous, agitated or restless Anesthetic Plan: General Monitoring Plan: Standard Monitors Recovery Plan: PACU
[2017-01-15] MEDS ORDERED: *HR* Etomidate 40 MG/20 ML VIAL IVP ONE (14:32)
[2017-01-15] MEDS ORDERED: *HR* Labetalol 20 MG/4 ML SYRINGE IVP PRN (15:23)
[2017-01-15] MEDS ORDERED: *HR* Morphine 2 MG/ML SYRINGE IVP PRN (15:23)
[2017-01-15] MEDS ORDERED: EPHEDrine 50 MG/ML VIAL ONE (15:31)
[2017-01-15] MEDS ORDERED: *HR* Phenylephrine 10 MG/ML VIAL ONE (15:35)
--- NOTE | 2017-01-15 16:10 | Electrocardiograph Report ---
[place] [id number] Test Date: 2017-01-14 Pat Name: Sudheer Gonzalez Department: 103 Room: [facility] Gender: M Laboratory Immunologist: AM : 1930 Requested By: Kip Collins Order Number: [id number] Reading MD: Tavon Bermudez Measurements Intervals Lam[place] Rate: 103 P: MD: 0 QRS: 31 QRSD: 89 T: 42 QT: 343 QTc: 403 Interpretive Statements ATRIAL FIBRILLATION WITH RAPID VENTRICULAR RESPONSE WITH ABERRANT CONDUCTION OR VENTRICULAR PREMATURE COMPLEXES ABNORMAL RHYTHM ECG Electronically Signed On 01-15-2017 16:08:52 EDT by Tavon Bermudez
--- NOTE | 2017-01-15 16:18 | Orthopedic Operative Note ---
Date of procedure: 01/15/17 Procedure: OPERATIVE REPORT DATE OF PROCEDURE: 01/15/2017 SURGEON: Gaurav Amin MD COMPUTER CLERK(S): There were no assistants PREOPERATIVE DIAGNOSIS: Right impacted subcapital femoral neck fracture POSTOPERATIVE DIAGNOSIS: Right impacted subcapital femoral neck fracture PROCEDURE: In situ percutaneous screw fixation of the right subcapital impacted femoral neck fracture ANESTHESIA: General anesthesia PREOPERATIVE ANTIBIOTICS: 2 g of Ancef ESTIMATED BLOOD LOSS: 30 milliliters IMPLANTS: Simran 6.5 mm partially threaded cancellous screws: 105 mm, 90 mm, 85 mm PREOPERATIVE NOTE AND INDICATIONS: Sudheer is an 86-year-old male with dementia who has an impacted right subcapital femoral neck fracture after a fall in his longterm. He was admitted to the hospitalist with plans for stabilization via the above procedure in order to reduce the risk of displacement. He was presumed to have a urinary tract infection by the hospitalist and has been receiving meropenem. The surgical plan was discussed with the patient. The risks, benefits, alternatives, and potential complications of this procedure were discussed with the patient including injury to veins, arteries, nerves, tendons, ligaments, and bone. Also discussed were the risks of infection, bleeding, pain, blood clots, the possible need for a blood transfusion, the possible need for further procedures, heart attack, stroke, and . Additional risks include the risk of avascular necrosis, malunion, and nonunion. All of this was explained in simple terms, and the patient verbalized understanding and wished to proceed. Consent was given to proceed with surgery. PROCEDURE: The patient was seen in the preoperative holding area where the identify and the consent were confirmed. The right thigh was marked. Final questions were answered. The patient was brought back to the operating room. A huddle was performed with the patient and all vital surgical team members confirming patient identity, the correct procedure, and the correct operative site. General anesthesia was administered. The patient was then placed on the traction table and the right lower extremities placed in the traction boot without traction. The left lower extremity was flexed and abducted out of the way. X-rays confirmed no displacement. The right thigh was prepped and draped in the usual sterile fashion. A surgical time out was performed immediately preceding the incision with all personnel in the operating room to confirm patient identity, the correct operative site and extremity, correct radiographic studies, availability of appropriate surgical equipment, and agreement on the planned procedure. Small longitudinal incision was made through the skin, subcutaneous tissue, and fascia. First guidewire was driven in the inferior position into the femoral head measured, drilled, and the definitive 6.5 mm partially threaded cancellus screw was placed. This guidewire was left in place and the anterior superior guidewire placed and similarly drilled, and a partially-threaded cancellus screw was placed. A similar procedure was performed for the posterior superior screw and all guidewires were taken out. X-rays confirmed the position of the fracture and hardware. All 3 screws obtained excellent purchase. The wound was copiously irrigated and the deep fascia was closed with 0 Vicryl stitches followed by the skin with 3-0 Vicryl and robert. The patient was taken off the traction table and placed on his bed in good condition. The instrument, sponge, and needle counts were correct after wound closure. POST OPERATIVE PLAN: Weight Bearing: Weightbearing as tolerated to the bilateral lower extremities. DVT Prophylaxis: Aspirin 325 mg by mouth twice a day Activity: As tolerated with assistance Wound Care: Daily dressing changes and postoperative day 2 Perioperative antibiotic prophylaxis: 2 doses of Ancef Social work for discharge planning Follow Up: 2 weeks
--- NOTE | 2017-01-15 16:40 | Anesthesia Evaluation Post Op ---
Date of Encounter: 01/15/17 Time of Encounter: 16:40 - Vital Signs Vital Signs: Vital Signs/O2 Sat/Glucose, Most Current Temp Pulse Resp BP Pulse Ox 01/15/17 16:27 98 18 135/69 92 01/15/17 16:17 111 20 136/71 100 01/15/17 16:07 98.7 F 119 24 147/75 100 - Lungs Lungs: Clear Ascult./Percussion - Airway Airway: Non-obstructed - Cardiovascular Regular Rate - Mental Status Mental Status: Alert & Oriented, Answers Appropriately - Pain Pain Scale: 0 - Nausea Vomiting Nausea Vomiting: Not Present - Hydration Hydration: Ice chips - Discharge PostOp Status: Transfer Patient to floor
[2017-01-15] MEDS: Ertapenem 1,000 MG in 0.9 % Sodium Chloride Mini Bag 100 ML IVPB SCH (17:02)
[2017-01-16] MEDS: ceFAZolin 2,000 MG in D5% in Water 100 ML IVPB SCH ×2 (01:36→07:58)
[2017-01-16] MEDS: 0.9 % Sodium Chloride 1,000 ML IVC SCH ×2 (06:53→22:31)
[2017-01-16 07:09] LABS: Hemoglobin A1C 6.7 %
--- NOTE | 2017-01-16 07:13 | Orthopedics Progress Note ---
Date of Encounter: 01/16/17 Time of Encounter: 07:10 - Assessment and Plan (1) Hip fracture, right Current Visit: Yes Status: Acute Qualifiers: Encounter type: initial encounter Fracture type: closed Qualified Code(s) : S72.001A - Fracture of unspecified part of neck of right femur, initial encounter for closed fracture Subjective Interval history: S: No new complaints. Says he has no pain. O: Aefebrile, VSS Right thigh dressing is clean, dry, intact. Minimal tenderness over dressing. I can gently log roll and axial load the right thigh with no pain. He grossly flexes and extends the ankle and toes with no issue. Right foot is warm and well perfused. AM labs pending A: Post op day 1 after percutaneous pinning of the right hip. Urinary tract infection P: OT/PT WBAT B/L LE Up to chair at least BID Complete two doses of post op ABX Ordinarily would remove lopez this AM. D/C lopez this AM if okay with hospitalist ASA 325 mg PO BID for DVT prophylaxis B/L Knee high KB and SCDs Follow up labs. Objective Vital signs: Vital Signs Temp Pulse Resp BP Pulse Ox 01/16/17 07:07 97.9 F 66 16 132/72 98 01/16/17 03:39 97.5 F L 95 17 137/80 95 01/16/17 00:06 97.8 F 101 17 144/80 98 01/15/17 21:33 98 01/15/17 19:57 97.9 F 106 16 150/80 97 01/15/17 19:00 97.9 F 93 18 113/71 95 01/15/17 18:09 97.9 F 89 24 134/73 01/15/17 17:27 97.9 F 90 16 143/90 95 01/15/17 17:14 98.3 F 92 20 132/84 94 01/15/17 16:37 100.1 F H 106 17 133/72 94 01/15/17 16:27 98 18 135/69 92 01/15/17 16:17 111 20 136/71 100 01/15/17 16:07 98.7 F 119 24 147/75 100 01/15/17 11:55 99.4 F 103 18 143/76 95 01/15/17 07:15 98.6 F 110 16 132/72 96 Intake and Output 01/15/17 01/15/17 01/16/17 15:59 23:59 07:59 Intake Total 557 / 557 843 / 843 Output Total 1050 / 1050 380 / 380 450 / 450 Balance -1050 / -1050 177 / 177 393 / 393 Intake: IV Fluids 157 / 157 843 / 843 0.9 % Sodium Chloride 1, 157 / 157 843 / 843 000 ML @ 100 mls/hr IVC . Q10H NAT Rx#:[id number] Oral 400 / 400 Output: Estimated Blood Loss 30 / 30 Catheter 1050 / 1050 350 / 350 450 / 450 Other: Percent of Meal Consumed 0% Weight 85 kg Blood Glucose* 154 164 Patient Weight 01/16/17 23:59 Weight 85 kg - Labs CBC & BMP: 01/15/17 08:20 01/15/17 08:20 Labs: Abnormal lab results WBC 13.7 K/mcL (4.3-11.1) H 01/15/17 08:20 RBC 3.78 M/mcL (4.19-5.50) L 01/15/17 08:20 Hgb 10.8 g/dL (12.9-16.9) L 01/15/17 08:20 Hct 33.1 % (37.5-50.1) L 01/15/17 08:20 Neutrophils # 15.0 K/mcL (1.6-8.9) H 01/14/17 11:23 PT 15.2 Seconds (9.4-12.1) H 01/14/17 11:23 BUN 7 mg/dL (8-26) L 01/15/17 08:20 Creatinine 0.59 mg/dL (0.72-1.25) L 01/15/17 08:20 Glucose 131 mg/dL (70-99) H 01/15/17 08:20 POC Glucose 154 (58-89) H 01/15/17 17:01 Urine Clarity Cloudy (Clear) A 01/14/17 21:09 Urine Blood Small (Negative) H 01/14/17 21:09 Ur Leukocyte Esterase Small (Negative) H 01/14/17 21:09 Urine Microscopic RBC 3-5 per hpf (0-3) H 01/14/17 21:09 Urine Microscopic WBC 15-30 per hpf (0-3) H 01/14/17 21:09 Ur Culture Indicated? YES (NO) A 01/14/17 21:09 - VTE Documentation of Mechanical Device: Intermittent pneumatic compression device Consult Discharge Plan - Plan [facility]errals: [facility] [Primary Care Provider] -
[2017-01-16] MEDS: Isosorbide MONOnitrate (24 HR) 30 MG TAB.ER.24H PO SCH (07:55)
[2017-01-16] MEDS: Diltiazem CD (24hr) 240 MG CAPSULE PO SCH (07:55)
[2017-01-16] MEDS: risperiDONE 0.25 MG TABLET PO SCH ×2 (07:56→22:29)
[2017-01-16] MEDS: Insulin LISPRO 300 UNITS/3 ML VIAL SQ SCH ×3 (07:59→18:16)
[2017-01-16 08:09] LABS: Hematocrit 36.2 % (37.5-50.1); Hemoglobin 11.4 g/dL (12.9-16.9)
[2017-01-16 10:09] LABS: BUN/Creatinine Ratio 21 (6-26); Blood Urea Nitrogen 13 mg/dL (8-26); Calcium 9.1 mg/dL (8.6-10.8); Carbon Dioxide 21 mEq/L (19-29); Chloride 105 mEq/L (98-109); Glucose 171 mg/dL (70-99); Osmolality,Calculated 284 (280-300); Sodium 135 mEq/L (136-145); eGFR For African Americans > 60 (> 60); eGFR For Non-African Americans > 60 (> 60)
--- NOTE | 2017-01-16 10:09 | Discharge Summary ---
Date of Encounter: 01/16/17 Time of Encounter: 10:05 - Discharge Diagnosis (1) Hip fracture, right Priority: Primary Status: Acute Comments: right closed subcapital femoral neck fracture Qualifiers: Encounter type: initial encounter Fracture type: closed Qualified Code(s) : S72.001A - Fracture of unspecified part of neck of right femur, initial encounter for closed fracture (2) History of ESBL E. coli infection Priority: Primary Status: Acute (3) Fall Priority: Secondary Status: Acute Qualifiers: Encounter type: initial encounter Qualified Code(s): W19.XXXA - Unspecified fall, initial encounter (4) Hyperglycemia Priority: Secondary Status: Acute (5) Atrial fibrillation Priority: Secondary Status: Acute Qualifiers: Atrial fibrillation type: paroxysmal Qualified Code(s): I48.0 - Paroxysmal atrial fibrillation (6) Dementia Priority: Secondary Status: Acute Qualifiers: Dementia type: unspecified type Dementia behavioral disturbance: without behavioral disturbance Qualified Code(s): F03.90 - Unspecified dementia without behavioral disturbance (7) Paraphimosis Priority: Secondary Status: Acute - Discharge Medications Prescriptions: Ertapenem [INVanz] 1,000 mg IVPB DAILY #5 vial Home Medications: Acetaminophen [Tylenol] 650 mg PO TID PRN 01/14/17 [History] Ammonium Lactate 1 appl TP MOTH 01/14/17 [History] Aspirin Enteric Coated [Aspirin EC] 81 mg PO DAILY 01/14/17 [History] Atorvastatin [Lipitor] 10 mg PO HS 01/14/17 [History] Diltiazem HCl [Diltiazem 24Hr Cd] 240 mg PO DAILY 01/14/17 [History] Furosemide [Lasix] 20 mg PO DAILY 01/14/17 [History] Ipratropium/Albuterol Neb [Duoneb] 3 ml IH Q6HR PRN 01/14/17 [History] Isosorbide MONOnitrate (24 HR) [Imdur] 15 mg PO DAILY 01/14/17 [History] LORazepam [Ativan] 0.5 mg PO BID PRN 01/14/17 [History] Magnesium Hydroxide [Milk of Magnesia] 2,400 mg PO DAILY PRN 01/14/17 [History] Melatonin 3 mg PO HS 01/14/17 [History] Menthol/Zinc Oxide [Calmoseptine Ointment Packet] 3.5 gm TP BID 01/14/17 [ History] Methyl Salicylate/Menthol [Muscle Rub Cream] 1 appl TP TID 01/14/17 [History] Nitroglycerin [Nitrostat] 0.4 mg SL Q5M PRN 01/14/17 [History] RisperiDONE [Risperdal] 0.5 mg PO BID 01/14/17 [History] RisperiDONE [Risperdal] 0.5 mg PO Q8H PRN 01/14/17 [History] Sennosides/Docusate Sodium [Senna Plus] 2 each PO BID 01/14/17 [History] Sodium Chloride 1 drop LEFT EYE QID 01/14/17 [History] Sodium Chloride 5% OPTH Oint [Devi-128] 1 appl LEFT EYE HS 01/14/17 [History] Tamsulosin [Flomax] 0.4 mg PO DAILY 01/14/17 [History] Tramadol HCl [Ultram] 25 mg PO BID 01/14/17 [History] Tramadol HCl [Ultram] 50 mg PO BID PRN 01/14/17 [History] traZODone [TraZODone] 25 mg PO HS 01/14/17 [History] Ertapenem [INVanz] 1,000 mg IVPB DAILY #5 vial 01/16/17 [Rx] Allergies/Adverse Reactions: Allergies No Known Allergies Allergy (Verified 01/14/17 13:00) Procedures/tests Complete & Pending: Procedures Performed prior 72 hours Category Date Time Status ECG 12 lead ECG [ECG] Routine Y 01/14/17 11:07 Completed Date of admission: 01/14/17 17:20 [facility] physician: [facility] Consults: 01/15/17 16:10 Consult to Occupational Therapy [CONS] Routine Comment: Evaluate, develop and implement POC Reason for Consult: post hip surgery Consult to Physical Therapy [CONS] Routine Comment: Evaluate, develop and implement POC Reason for Consult: post hip surgery - Patient Status Disposition: Transfer SNF Condition: Fair Overall status at discharge: patient is progressing back to baseline - Discharge Instructions Follow Up With: [facility] [Primary Care Provider] - Additional Instructions: Continue ertapenem for 5 more days. Fall precautions. Follow-up with urology within the next 2-3 weeks. - Diet and Activity Activity: other (Bed rest) Diet: diabetic diet Hospital course: Mr. Gonzalez is a 86 year old male with a past medical history of dementia,atrial fibrillation (Not on anticoagulation other than aspirin), coronary artery disease, dementia, hyperlipidemia, hypertension, other (BPH, diverticulosis, dementia, hyperglycemia no history of prior diabetes, chronic paraphimosis, ESBL Escherichia coli diagnosed in September 2016 sensitive to meropenem nitrofurantoin tetracycline gentamicin tobramycin, glaucoma, anxiety, depression , was transferred to the ER from the ID after a fall. The patient came with a diagnosis of right hip fracture. A CT scan of the hip showed a right closed subcapital femoral neck fracture nondisplaced. Dr. Winn was contacted by the ER. The patient was not able to provide any history and apparently he was found out of his chair on the floor complaining of right hip pain. White blood cell count is 17.9 hemoglobin 9.4 glucose was 181 although there is no history of diabetes in his chart CT scan of the head did not show any intracranial hemorrhage, chest x-ray shows cardiomegaly. A urine sample was not able to be obtained initially, urology was consulted and a Paul catheter was placed with difficulty due to history of paraphimosis. The patient underwent a In situ percutaneous screw fixation of the right subcapital impacted femoral neck fracture on 01/15/2017. No complications from the surgery. Again, the patient was found to have Escherichia coli ESBL UTI, sensitive only to amikacin ertapenem and gentamicin meropenem nitrofurantoin tigecycline tobramycin and Bactrim. Was initially given meropenem and currently he is on ertapenem. The patient is demented oriented in person at baseline only. He is a DNR CC. Stable to be transferred back to the ID and to continue antibiotic therapy - Time Spent with Patient Total time spent providing and/or coordinating discharge services: Greater than 30 minutes (40 min) - Constitutional Vitals: Temp Pulse Resp BP Pulse Ox 97.9 F 66 16 132/72 98 01/16/17 07:07 01/16/17 07:07 01/16/17 07:07 01/16/17 07:07 01/16/17 07:07 General appearance: Present: A&O X 1 Exam: Head Head exam: Present: atraumatic, normocephalic Additional comments: Legally blind - Eye Eye exam: , conjuntiva pink, sclera anicteric - Neck Neck exam general surgery: Present: supple, trachea midline. Absent: lymphadenopathy - Respiratory Respiratory exam: Present: decreased breath sounds, CTAB. Absent: accessory muscle use, rales, rhonchi, wheezes - Cardiovascular Cardiovascular exam: Present: RRR, +S1, +S2. Absent: diastolic murmur, gallop, rubs, systolic murmur - GI/Abdominal GI/Abdominal exam: Present: normal bowel sounds, soft, no peritoneal signs. Absent: distended, tenderness - Extremities Exam Extremities exam: Present: warm, radial pulses palpable and symetrical. Absent : calf tenderness, cyanotic, pedal edema - Neurological Exam Neurological exam: Present: CN II-XII intact, no focal deficits. Absent: oriented X3, pronater drift, facial droop, speech deficit Additional comments: Generalized weakness, surgical wound on the right hip with mild swelling, no signs of infection, no ecchymosis or hematomas Paul catheter in place - VTE Documentation of Mechanical Device: Intermittent pneumatic compression device
[2017-01-16 10:10] LABS: Potassium 5.2 mEq/L (3.5-4.5)
--- NOTE | 2017-01-16 10:16 | Physician Discharge Referral ---
[facility] Referral Info Provider in Charge after Transfer: PCP Institutional Level of Care: Skilled - Diagnosis (1) Hip fracture, right Status: Acute (2) History of ESBL E. coli infection Status: Acute (3) Fall Status: Acute (4) Hyperglycemia Status: Acute (5) Atrial fibrillation Status: Acute (6) Dementia Status: Acute (7) Paraphimosis Status: Acute - Transfer Medications Prescriptions: Ertapenem [INVanz] 1,000 mg IVPB DAILY #5 vial Home Medications: Acetaminophen [Tylenol] 650 mg PO TID PRN 01/14/17 [History] Ammonium Lactate 1 appl TP MOTH 01/14/17 [History] Aspirin Enteric Coated [Aspirin EC] 81 mg PO DAILY 01/14/17 [History] Atorvastatin [Lipitor] 10 mg PO HS 01/14/17 [History] Diltiazem HCl [Diltiazem 24Hr Cd] 240 mg PO DAILY 01/14/17 [History] Furosemide [Lasix] 20 mg PO DAILY 01/14/17 [History] Ipratropium/Albuterol Neb [Duoneb] 3 ml IH Q6HR PRN 01/14/17 [History] Isosorbide MONOnitrate (24 HR) [Imdur] 15 mg PO DAILY 01/14/17 [History] LORazepam [Ativan] 0.5 mg PO BID PRN 01/14/17 [History] Magnesium Hydroxide [Milk of Magnesia] 2,400 mg PO DAILY PRN 01/14/17 [History] Melatonin 3 mg PO HS 01/14/17 [History] Menthol/Zinc Oxide [Calmoseptine Ointment Packet] 3.5 gm TP BID 01/14/17 [ History] Methyl Salicylate/Menthol [Muscle Rub Cream] 1 appl TP TID 01/14/17 [History] Nitroglycerin [Nitrostat] 0.4 mg SL Q5M PRN 01/14/17 [History] RisperiDONE [Risperdal] 0.5 mg PO BID 01/14/17 [History] RisperiDONE [Risperdal] 0.5 mg PO Q8H PRN 01/14/17 [History] Sennosides/Docusate Sodium [Senna Plus] 2 each PO BID 01/14/17 [History] Sodium Chloride 1 drop LEFT EYE QID 01/14/17 [History] Sodium Chloride 5% OPTH Oint [Devi-128] 1 appl LEFT EYE HS 01/14/17 [History] Tamsulosin [Flomax] 0.4 mg PO DAILY 01/14/17 [History] Tramadol HCl [Ultram] 25 mg PO BID 01/14/17 [History] Tramadol HCl [Ultram] 50 mg PO BID PRN 01/14/17 [History] traZODone [TraZODone] 25 mg PO HS 01/14/17 [History] Ertapenem [INVanz] 1,000 mg IVPB DAILY #5 vial 01/16/17 [Rx] Allergies/Adverse Reactions: Allergies No Known Allergies Allergy (Verified 01/14/17 13:00) - Respiratory Orders Smoking Cessation: Smoking cessation has been advised. For more information, call the [facility] Quit Line at 2-073-QWEH-NOW. - Advance Directives Code Status: DNR-Comfort Care - Treatments List/Other: Continue ertapenem for 5 more days. Fall precautions. Follow-up with urology within the next 2-3 weeks. - Diet Orders No Added Salt (JOHNNY) CERTIFICATION: I certify that the transfer of the above named patient to an Extended Care Facility is necessary for the continuing treatment of the diagnosis listed. The above information is true and accurate reflection of patient's current condition. Confidential - Redisclosure prohibited without a patient's written consent.
[2017-01-16] MEDS: Ertapenem 1,000 MG in 0.9 % Sodium Chloride Mini Bag 100 ML IVPB SCH (18:13)
[2017-01-16] MEDS: Aspirin Enteric Coated 325 MG Tablet PO SCH ×2 (18:15→22:29)
[2017-01-17 06:12] LABS: Basophils % 0.2 %; Eosinophils % 0.1 %; Hemoglobin 10.1 g/dL (12.9-16.9); Lymphocytes % 15.1 %; Mean Corpuscular HGB Conc 32.6 g/dL (31.6-35.5); Mean Corpuscular Hemoglobin 28.8 pg (28.0-33.3); Mean Corpuscular Volume 88.3 fL (83.0-100.0); Mean Platelet Volume 10.7 fL (9.4-12.4); Monocytes % 7.3 %; Neutrophils # 10.2 K/mcL (1.6-8.9); Platelet Count 285 K/mcL (140-400); Red Blood Count 3.51 M/mcL (4.19-5.50); Red Cell Distribution Width 13.6 % (11.5-14.5); Segmented Neutrophils % 76.3 %
[2017-01-17 06:48] LABS: BUN/Creatinine Ratio 21 (6-26); Blood Urea Nitrogen 14 mg/dL (8-26); Calcium 8.6 mg/dL (8.6-10.8); Carbon Dioxide 25 mEq/L (19-29); Chloride 105 mEq/L (98-109); Glucose 155 mg/dL (70-99); Osmolality,Calculated 286 (280-300); Sodium 136 mEq/L (136-145); eGFR For African Americans > 60 (> 60); eGFR For Non-African Americans > 60 (> 60)
[2017-01-17 06:49] LABS: Potassium 3.5 mEq/L (3.5-4.5)
[2017-01-17 07:15] VITALS: BP 111/57
--- NOTE | 2017-01-17 07:39 | Internal Med Progress Note ---
Date of Encounter: 01/17/17 Time of Encounter: 07:37 - Assessment and plan (1) Hip fracture, right Current Visit: Yes Status: Acute Assessment and plan: Fall precautions CT scan shows right closed subcapital femoral neck fracture Orthopedic surgery consulted, scheduled to have surgery later today, will require in situ percutaneous screw fixation of the right hip Luiz's revised score of 1 due to history of CAD, low risk for cardiac complications during surgery, intermediate risk surgery Omeprazole for GI prophylaxis and subcutaneous heparin for DVT prophylaxis. DNR CC according to records sent from the [place] Qualifiers: Encounter type: initial encounter Fracture type: closed Qualified Code(s) : S72.001A - Fracture of unspecified part of neck of right femur, initial encounter for closed fracture (2) History of ESBL E. coli infection Current Visit: Yes Status: Acute Assessment and plan: Sepsis secondary to UTI with history of Escherichia coli ESBL Keep Paul catheter Was a started on meropenem and then switched to ertapenem, complete a total of 7 days of antibiotics (3) Fall Current Visit: Yes Status: Acute Qualifiers: Encounter type: initial encounter Qualified Code(s): W19.XXXA - Unspecified fall, initial encounter (4) Hyperglycemia Current Visit: Yes Status: Acute Assessment and plan: No history of diabetes Continue insulin sliding scale (5) Atrial fibrillation Current Visit: Yes Status: Acute Assessment and plan: Continue diltiazem and aspirin Qualifiers: Atrial fibrillation type: paroxysmal Qualified Code(s): I48.0 - Paroxysmal atrial fibrillation (6) Dementia Current Visit: Yes Status: Acute Assessment and plan: Continue risperidone and Ativan as needed Qualifiers: Dementia type: unspecified type Dementia behavioral disturbance: without behavioral disturbance Qualified Code(s): F03.90 - Unspecified dementia without behavioral disturbance (7) Paraphimosis Current Visit: Yes Status: Acute Assessment and plan: urology consulted Paul catheter placed by urology with difficulty, Paul was removed, we will make sure the patient is voiding prior to discharge - Subjective Interval history: Last somnolent, oriented only in person at baseline, unable to complete review of systems the patient's confusion / dementia - Constitutional Vitals: Temp Pulse Resp BP Pulse Ox 98.0 F 70 18 111/57 93 01/17/17 07:10 01/17/17 07:10 01/17/17 07:10 01/17/17 07:10 01/17/17 07:10 General appearance: Present: A&O X 1 Exam: Head Head exam: Present: atraumatic, normocephalic Additional comments: Legally blind - Eye Eye exam: , conjuntiva pink, sclera anicteric - Neck Neck exam general surgery: Present: supple, trachea midline. Absent: lymphadenopathy - Respiratory Respiratory exam: Present: decreased breath sounds, CTAB. Absent: accessory muscle use, rales, rhonchi, wheezes - Cardiovascular Cardiovascular exam: Present: RRR, +S1, +S2. Absent: diastolic murmur, gallop, rubs, systolic murmur - GI/Abdominal GI/Abdominal exam: Present: normal bowel sounds, soft, no peritoneal signs. Absent: distended, tenderness - Extremities Exam Extremities exam: Present: warm, radial pulses palpable and symetrical. Absent : calf tenderness, cyanotic, pedal edema - Neurological Exam Neurological exam: Present: CN II-XII intact, no focal deficits. Absent: oriented X3, pronater drift, facial droop, speech deficit Additional comments: Generalized weakness, surgical wound on the right hip with mild swelling, no signs of infection, no ecchymosis or hematomas Internal Medicine: Result - Labs CBC & Chem 7: 01/17/17 03:56 01/17/17 03:56 Labs: Short CBC 01/16/17 01/17/17 Range/Units 06:34 03:56 WBC 13.4 H (4.3-11.1) K/mcL Hgb 11.4 L 10.1 L (12.9-16.9) g/dL Hct 36.2 L 31.0 L (37.5-50.1) % Plt Count 285 (140-400) K/mcL Neutrophils # 10.2 H (1.6-8.9) K/mcL BMP 01/16/17 01/17/17 07:52 03:56 Sodium 135 L 136 Potassium 5.2 H D 3.5 D Chloride 105 105 Carbon Dioxide 21 25 BUN 13 14 Creatinine 0.63 L 0.67 L Glucose 171 H 155 H Calcium 9.1 8.6 - ABG Interpretation ABG results: PT/INR, D-dimer PT 15.2 Seconds (9.4-12.1) H 01/14/17 11:23 - VTE Documentation of Mechanical Device: Intermittent pneumatic compression device Consult Discharge Plan - Plan Additional Instructions: Continue ertapenem for 5 more days. Fall precautions. Follow-up with urology within the next 2-3 weeks. Referrals: [facility] [Primary Care Provider] - Prescriptions: Ertapenem [INVanz] 1,000 mg IVPB DAILY #5 vial
--- NOTE | 2017-01-17 08:14 | Orthopedics Progress Note ---
Date of Encounter: 01/17/17 Time of Encounter: 08:12 - Assessment and Plan (1) Hip fracture, right Current Visit: Yes Status: Acute Qualifiers: Encounter type: initial encounter Fracture type: closed Qualified Code(s) : S72.001A - Fracture of unspecified part of neck of right femur, initial encounter for closed fracture Subjective Interval history: S: Resting in bed comfortably. No overnight events. Not able to verbalize complaints, but does not appear to be in pain. Slow to mobilize with therapy. O: Aefebrile, VSS Right thigh dressing changed. Incision is clean, dry, and intact. No concern for infection. Minimal tenderness. I can gently log roll and axial load the right thigh with no pain. He grossly flexes and extends the ankle and toes with no issue. Right foot is warm and well perfused 25-hydroxy Vitamin D: 21 A: Post op day 2 after percutaneous pinning of the right hip. Urinary tract infection - Escherichia coli Hypovitaminosis D P: OT/PT WBAT B/L LE Up to chair at least BID Paul is out. ASA 325 mg PO BID for DVT prophylaxis B/L Knee high KB and SCDs Vitamin D2 50,000 international units weekly, and 1200 mg of calcium a day UTI per primary team- currently on ertepenem Orthopedically stable for discharge. Follow-up with me in the office 2 weeks from the surgery date. Objective Vital signs: Vital Signs Temp Pulse Resp BP Pulse Ox 01/17/17 07:10 98.0 F 70 18 111/57 93 01/17/17 00:39 98.4 F 111 20 127/63 95 01/16/17 21:27 98 F 120 20 137/74 97 01/16/17 15:46 98.7 F 98 16 118/66 96 01/16/17 11:29 97.6 F 103 17 132/79 99 Intake and Output 01/16/17 01/17/17 01/17/17 23:59 07:59 15:59 Intake Total 1000 / 1000 Balance 1000 / 1000 Intake: IV Fluids 1000 / 1000 0.9 % Sodium Chloride 1, 1000 / 1000 000 ML @ 100 mls/hr IVC . Q10H NAT Rx#:[id number] Other: Blood Glucose* 154 164 - Labs CBC & BMP: 01/17/17 03:56 01/17/17 03:56 Labs: Abnormal lab results WBC 13.4 K/mcL (4.3-11.1) H 01/17/17 03:56 RBC 3.51 M/mcL (4.19-5.50) L 01/17/17 03:56 Hgb 10.1 g/dL (12.9-16.9) L 01/17/17 03:56 Hct 31.0 % (37.5-50.1) L 01/17/17 03:56 Neutrophils # 10.2 K/mcL (1.6-8.9) H 01/17/17 03:56 PT 15.2 Seconds (9.4-12.1) H 01/14/17 11:23 Creatinine 0.67 mg/dL (0.72-1.25) L 01/17/17 03:56 Glucose 155 mg/dL (70-99) H 01/17/17 03:56 POC Glucose 154 (58-89) H 01/16/17 20:55 Hemoglobin A1c 6.7 % (-5.6) H 01/16/17 06:34 25-OH Vitamin D Total 21 ng/mL (30-80) L 01/16/17 06:34 Urine Clarity Cloudy (Clear) A 01/14/17 21:09 Urine Blood Small (Negative) H 01/14/17 21:09 Ur Leukocyte Esterase Small (Negative) H 01/14/17 21:09 Urine Microscopic RBC 3-5 per hpf (0-3) H 01/14/17 21:09 Urine Microscopic WBC 15-30 per hpf (0-3) H 01/14/17 21:09 Ur Culture Indicated? YES (NO) A 01/14/17 21:09 - VTE Documentation of Mechanical Device: Intermittent pneumatic compression device Consult Discharge Plan - Plan Additional Instructions: HALFWAY DISCHARGE INSTRUCTIONS Dr. Eloisa CAMARILLO PERFORMED Reduction and fixation of right hip. Incision care -Daily dressing changes to the right hip with dry gauze and either paper tape or medipore tape. -Avoid soaking wound in water (no hot tubs, bathtubs, swimming pools). -May shower after 2 weeks from surgery date. Carefully wash incision with soap and water. Gently pat it dry. Don't rub the incision, or apply creams or lotions. Sit on a shower stool when showering to keep from falling. Weight bearing status -Weightbearing as tolerated to the bilateral lower extremities. Medications -Pain medication per the discharging medical doctor -Enteric coated aspirin 325 mg by mouth twice per day for 28 days from the date of the surgery. -Resume 50,000 units of vitamin D2 weekly and 1200 mg of calcium supplementation per day. Other -Knee high KB hose 23 hours per day -Consult physical and occupational therapy for mobilization. -Up to chair with assistance at least twice per day. -Follow up with your primary care physician to discuss testing for bone mineral density. Follow-up with Dr. Amin at the office 2 weeks from the surgery date for a post operative evaluation. Call the office at [phone] to schedule appointment. Continue ertapenem for 5 more days. Fall precautions. Follow-up with urology within the next 2-3 weeks. Referrals: [facility] Care Provider[facility] - Prescriptions: Ertapenem [INVanz] 1,000 mg IVPB DAILY #5 vial
[2017-01-17] MEDS: Insulin LISPRO 300 UNITS/3 ML VIAL SQ SCH (08:31)
== END 2017-01-17 09:15 | DRG 853 ==
LOC: EMEROO 11:01 → 3NENU 11:01
PROVIDERS: ADMIT Internal Medicine; ATTEND Internal Medicine